=== PATIENT | male | born 1955 | race Caucasian/White ===

== ENCOUNTER 2017-04-18 17:57 | Emergency (ER) | payer SELFPAY ==
[2017-04-18] MEDS ORDERED: Proparacaine 0.5% Ophth Soln 15 ML Bottle EYELF STA (18:27)
--- NOTE | 2017-04-18 18:27 | EDM.PDOC ---
ED HPI GENERAL MEDICAL PROBLEM - General Chief Complaint: Eye Problems Stated Complaint: CUT/PAIN LT EYE Time Seen by Provider: 04/18/17 18:27 Source of Information: Reports: Patient History Limitations: Reports: No Limitations - History of Present Illness INITIAL COMMENTS - FREE TEXT/NARRATIVE: HISTORY AND PHYSICAL: History of present illness: Patient is a 61-year-old male who presents to the emergency room with complaints of left eye pain. She was walking in a ditch and cleaning of debris when a cat tail (stick) hit him in the left eye. Patient is concerned he has some foreign bodies remaining in the eye. Reports he does wear corrective glasses but was not wearing any eyewear at the time of the incident. Please see nursing note for visual acuity. Review of systems: As per history of present illness and below otherwise all systems reviewed and negative. Past medical history: As per history of present illness and as reviewed below otherwise noncontributory. Surgical history: As per history of present illness and as reviewed below otherwise noncontributory. Social history: No reported history of drug or alcohol abuse. Family history: As per history of present illness and as reviewed below otherwise noncontributory. Physical exam: General: Nontoxic appearing 61-year-old male. HEENT: Atraumatic, normocephalic, pupils reactive, patient has subconjunctival hemorrhage to the left lateral eye. At approximately 3:00 there is a white semicircular area along the rim of the iris which does not disrupt the iris or have a foreign body or proctosis of tissue. Florascene eye exam shows corneal abrasion along the 3:00 position. The curvature of the globe is not disrupted and is smooth. Oral mucous membranes moist, throat clear, neck supple, nontender, trachea midline. Lungs: Clear to auscultation, breath sounds equal bilaterally, chest nontender. Heart: S1S2, regular, negative for clicks, rubs, or JVD. Abdomen: Soft, nondistended, nontender. Negative for masses or hepatosplenomegaly. Negative for costovertebral tenderness. Pelvis: Stable nontender. Genitourinary: Deferred. Rectal: Deferred. Extremities: Atraumatic, negative for cords or calf pain. Neurovascular unremarkable. Neuro: Awake, alert, oriented. Cranial nerves II through XII unremarkable. Cerebellum unremarkable. Motor and sensory unremarkable throughout. Exam nonfocal. Dr. Lewis consulted on this case. Patient did sign a medical release form to allow us to send a picture of the eye via text. She was sent to Dr. Lewis and he returned a phone call reporting that he would like the patient placed on a fluoroquinolone eyedrop or times daily and he would like to see the patient tomorrow in his clinic. Informed patient of this conversation that took place. She voices understanding and is agreeable to plan of care. Denies any further questions or concerns. Diagnostics: Eye exam Therapeutics: Proparacaine Impression: Corneal abrasion Definitive disposition and diagnosis as appropriate pending reevaluation and review of above. Onset: Today Onset Date: 04/18/17 Onset Time: 16:30 Left Eye Pain Score (Numeric/FACES): 2 - Related Data Allergies Allergy/AdvReac Type Severity Reaction Status Date / Time No Known Allergies Allergy Verified 04/18/17 18:09 Home Meds: Home Meds . [No Known Home Meds] 04/18/17 [History] Past Medical History - Past Health History Medical/Surgical History: Denies Medical/Surgical History - Infectious Disease History Infectious Disease History: Reports: Chicken Pox, Measles Social & Family History - Family History Family Medical History: Noncontributory - Tobacco Use Smoking Status *Q: Never Smoker - Alcohol Use Days Per Week of Alcohol Use: 7 Number of Drinks Per Day: 1 Total Drinks Per Week: 7 - Recreational Drug Use Recreational Drug Use: No ED ROS GENERAL - Review of Systems Review Of Systems: ROS reveals no pertinent complaints other than HPI. ED EXAM GENERAL W FULL EYE - Physical Exam Exam: See Below (See dictation) Course - Vital Signs Last Recorded V/S: Last Vital Signs Temp 36.9 C 04/18/17 18:06 Pulse 83 04/18/17 18:06 Resp 18 04/18/17 18:06 BP 132/78 04/18/17 18:06 Pulse Ox 96 04/18/17 18:06 - Orders/Labs/Meds Meds: Medications Discontinued Medications Generic Name Dose Route Start Last Admin Trade Name Freq PRN Reason Stop Dose Admin Proparacaine HCl 2 ml 04/18/17 18:27 Proparacaine 0.5% Ophth Soln EYELF 04/18/17 18:28 NOW STA Departure - Departure Time of Disposition: 19:00 Disposition: Home, Self-Care 01 Condition: Good Clinical Impression: Corneal abrasion Qualifiers: Encounter type: initial encounter Laterality: left Qualified Code(s): S05.02XA - Injury of conjunctiva and corneal abrasion without foreign body, left eye, initial encounter - Discharge Information Referrals: PCP,None [Primary Care Provider] - Forms: ED Department Discharge Additional Instructions: The following information is given to patients seen in the emergency department who are being discharged to home. This information is to outline your options for follow-up care. We provide all patients seen in our emergency department with a follow-up referral. The need for follow-up, as well as the timing and circumstances, are variable depending upon the specifics of your emergency department visit. If you don't have a primary care physician on staff, we will provide you with a referral. We always advise you to contact your personal physician following an emergency department visit to inform them of the circumstance of the visit and for follow-up with them and/or the need for any referrals to a consulting specialist. The emergency department will also refer you to a specialist when appropriate. This referral assures that you have the opportunity for followup care with a specialist. All of these measure are taken in an effort to provide you with optimal care, which includes your followup. Under all circumstances we always encourage you to contact your private physician who remains a resource for coordinating your care. When calling for followup care, please make the office aware that this follow-up is from your recent emergency room visit. If for any reason you are refused follow-up, please contact the [facility] emergency department at and ask to speak to the emergency department charge nurse. [address] [place] [address] Dr. Lewis has agreed to see you tomorrow at a time of your convenience. He is located at [facility], across the [facility]. The information is listed above. Please take your medications as prescribed: Cipro eye drops, 1-2 drops four times daily x 7 days. As we discussed, if you have any change in your vision or develope complications - return to the ED. Follow up in the next couple days with your primary care provider.
[2017-04-18 19:13] VITALS: BP 127/71
== END 2017-04-18 19:17 | disposition home or self-care (01) ==
LOC: MW.ED 17:57
DX: S05.02XA Injury of conjunctiva and corneal abrasion without foreign body, left eye, initial encounter (principal); W22.8XXA Striking against or struck by other objects, initial encounter; Y93.01 Activity, walking, marching and hiking
CPT/HCPCS: 99283